=== PATIENT | male | born 1975 | race Caucasian/White ===

== ENCOUNTER 2017-08-07 17:26 | Emergency (ER) | payer OTHER, SELFPAY | END 2017-08-07 18:35 | disposition home or self-care (01) | PROVIDERS: Emergency Provider Nurse Practitioner; Family Provider Physician Assistant; Visit Provider Nurse Practitioner | DX: J32.9 Chronic sinusitis, unspecified (principal); J45.909 Unspecified asthma, uncomplicated; I10 Essential (primary) hypertension; E11.9 Type 2 diabetes mellitus without complications; Z79.4 Long term (current) use of insulin; Z79.899 Other long term (current) drug therapy | CPT/HCPCS: 87804; 99201 ==

== ENCOUNTER → 2017-09-15 16:38 | Outpatient (REF) | payer OTHER, SELFPAY ==
[2017-09-15 19:35] LABS: Hemoglobin A1C 10.1 % (0.0-7.0)
== END ==
LOC: LAB 16:38
PROVIDERS: Visit Provider Nurse Practitioner Family
DX: E11.9 Type 2 diabetes mellitus without complications (principal); E11.40 Type 2 diabetes mellitus with diabetic neuropathy, unspecified; Z79.4 Long term (current) use of insulin
CPT/HCPCS: 83036

== ENCOUNTER 2017-11-14 22:27 | Emergency (ER) | payer OTHER, SELFPAY ==
[2017-11-14 22:29] VITALS: BP 185/122; PULSE 82; RESP 18; TEMP 36.9; O2SAT 90; BMI 32.0
--- NOTE | 2017-11-14 22:44 | XR_ITS ---
XR chest 2V HISTORY: ITS.REASON: cough ORDERING PHYSICIAN: Abhishek Peña MD PATIENT AGE: 41 years COMPARISON: None available FINDINGS: The cardiomediastinal silhouette and pulmonary vascularity are within normal limits. The lungs are clear without infiltrates, suspicious nodules, or pleural effusions. No acute bony abnormalities. IMPRESSION: Negative chest, no acute finding
[2017-11-14 23:25] LABS: POC Glucose,Bedside 281 mg/dL (70-110)
[2017-11-14 23:30] LABS: Basophils # 0.1 K/mm3 (0-0.2); Basophils % 0.8 % (0.1-2.0); Eosinophils # 0.3 K/mm3 (0.0-0.4); Eosinophils % 2.5 % (0.1-12.0); Hematocrit 45.4 % (42.0-52.0); Hemoglobin 15.5 g/dL (14.1-18.0); Lymphocytes # 1.3 K/mm3 (0.7-4.5); Lymphocytes % 11.4 K/mm3 (10-50); Mean Corpuscular Hemoglobin 29.1 pg (27.0-31.2); Mean Corpuscular Volume 85.5 fl (80-94); Mean Platelet Volume 8.1 fl (7.4-10.4); Monocytes # 0.6 K/mm3 (0.1-1.0); Neutrophils # 9.2 K/mm3 (1.8-7.8); Neutrophils % 80.2 % (37.0-80.0); Platelet Count 191 K/mm3 (142-424); Red Blood Count 5.31 M/mm3 (4.60-6.20); Red Cell Distribution Width 13.6 % (11.5-17.5); White Blood Count 11.5 K/mm3 (4.8-10.8)
--- NOTE | 2017-11-14 23:45 | PC.NURSE ---
Family member came out stating pt was not breathing well, requesting oxygen. RN and medic checked on PT.
[2017-11-14 23:48] LABS: Alanine Aminotransferase 20 U/L (12-78); Albumin Level 3.9 gm/dL (3.4-5.0); Alkaline Phosphatase 104 U/L (46-116); Anion Gap 14.8 mEq/L (5-15); Aspartate Amino Transferase 14 U/L (15-37); Bilirubin,Total 0.6 mg/dL (0.2-1.0); Blood Urea Nitrogen 22 mg/dL (7-18); Calcium 8.8 mg/dL (8.5-10.1); Carbon Dioxide 23 mmol/L (21.0-32.0); Chloride 99 mmol/L (98-107); Creatinine Clearance Estimated 70 mL/min (0-300); Creatinine,Serum 2.23 mg/dL (0.70-1.30); Estimated Glomerular Filt Rate 33 ml/min (>60); GFR (African American) 40 ML/MIN (>60); Glucose 262 mg/dL (74-106); Potassium 3.8 mmoL/L (3.5-5.1); Sodium 133 mmol/L (136-145); Total Protein,Serum 7.9 gm/dL (6.4-8.2)
[2017-11-14 23:49] LABS: Lactic Acid 0.7 mmol/L (0.4-2.0)
[2017-11-14 23:50] VITALS: BP 159/107; PULSE 66; RESP 24; TEMP 37.1; O2SAT 95
[2017-11-15 02:54] VITALS: BP 172/101; PULSE 88; RESP 16; TEMP 37; O2SAT 96
--- NOTE | 2017-11-15 03:15 | [facility].EDNVD ---
ED Disposition Clinical Impression: Renal insufficiency Nausea and vomiting Qualifiers: Vomiting type: unspecified Vomiting Intractability: unspecified Qualified Code(s): R11.2 - Nausea with vomiting, unspecified Diabetes Qualifiers: Diabetes mellitus type: type 1 Diabetes mellitus complication status: with unspecified complications Qualified Code(s): E10.8 - Type 1 diabetes mellitus with unspecified complications Hypertension Qualifiers: Hypertension type: unspecified Qualified Code(s): I10 - Essential (primary) hypertension Disposition: Home, Self-Care Condition on Discharge: Good Instructions: DI for Nausea -- Adult Additional Instructions: call pcp friday and recheck if needed Referrals: Abhishek Peña MD [Primary Care Provider] - - Critical Care Critical Care Time: No Attestation: On 11/14/17, the high probability of a clinically significant, sudden or life threatening deterioration of the following system(s) required my full and direct attention, intervention and personal management. The time I documented below is in addition to time spent performing reported procedures but includes the following listed in this critical care notation. Medical Decision Making - Medical Records Medical records reviewed: Yes: I reviewed the patient's medical records. - [place] Inquiry Pt receiving controlled substance: No Vital Signs: 11/14/17 22:29 11/14/17 23:50 11/15/17 02:54 Temperature 98.5 F 98.7 F 98.6 F Temperature Source Oral Oral Oral Pulse Rate [Brachial] 82 66 88 Respiratory Rate 18 24 16 Blood Pressure [Right Arm] 185/122 159/107 172/101 Blood Pressure Mean [Right Arm] 143 124 124 Blood Pressure Source [Right Arm] Automatic Cuff Manual Cuff/ Doppler Automatic Cuff Blood Pressure Position [Right Arm] Sitting Sitting Sitting 02 Sat by Pulse Oximetry 90 L 95 96 Oxygen Delivery Method Room Air Room Air - Lab Data Lab results reviewed: Yes: I reviewed the patient's lab results. Lab Results 11/14/17 22:45: POC Glucose 281 11/14/17 23:00: Influenza Type A Ag Negative, Influenza Type B Ag Negative 11/14/17 23:20: WBC 11.5 H, RBC 5.31, Hgb 15.5, Hct 45.4, MCV 85.5, MCH 29.1, MCHC 34.0, RDW 13.6, Plt Count 191, MPV 8.1, Neut % (Auto) 80.2 H, Lymph % (Auto) 11.4, [place] % (Auto) 5.0, Eos % (Auto) 2.5, Baso % (Auto) 0.8, Neut # (Auto) 9.2 H, Lymph # (Auto) 1.3, [place] # (Auto) 0.6, Eos # (Auto) 0.3, Baso # (Auto) 0.1 11/14/17 23:20: Sodium 133 L, Potassium 3.8, Chloride 99, Carbon Dioxide 23, Anion Gap 14.8, BUN 22 H, Creatinine 2.23 H, Estimated Creat Clear 70, Estimated GFR 33 L, Est GFR ( Amer) 40 L, Glucose 262 H, Calcium 8.8, Total Bilirubin 0.6, AST 14 L, ALT 20, Alkaline Phosphatase 104, Total Protein 7.9, Albumin 3.9, Globulin 4.0 H, Albumin/Globulin Ratio 1.0 L 11/14/17 23:20: Lactic Acid 0.7 Result diagrams: 11/14/17 23:20 11/14/17 23:20 Orders (Tests/Meds): ED MEDICATIONS Discontinued Medications Generic Name Dose Route Start Last Admin Trade Name Freq PRN Reason Stop Dose Admin Albuterol/Ipratropium 3 ml 11/14/17 23:47 Duoneb 3ml Neb IH 11/14/17 23:48 ONCE ONE Sodium Chloride 500 mls @ 999 mls/hr 11/14/17 23:00 11/14/17 23:25 Sod Chlor 0.9% 1000ml Bag IV 11/14/17 23:30 999 mls/hr .Q31M [facility] Administration ORDERS Category Date Time Status Blood Culture Stat Micro 11/15/17 02:54 Ordered ABG [Arterial Blood Gas] Stat RT 11/15/17 02:54 Ordered - Radiology Data #1 Image(s): Chest Image Reviewed: Yes I reviewed the patient's radiology image Preliminary Findings: Normal/NAD Nausea/Vomiting/Diarrhea HPI - General Chief complaint: Nausea/Vomiting/Diarrhea Stated complaint: VOMITING Time Seen by Provider: 11/15/17 03:15 Mode of Arrival: Ambulatory Source of Information: Patient, Significant Other, Medical Record Limitations: No Limitations Description of Symptoms (Recalled from ER Triage Doc. by RN): c/o cough, v
--- NOTE | 2017-11-15 03:19 | ED_ITS ---
ED Disposition Clinical Impression: Renal insufficiency Nausea and vomiting Qualifiers: Vomiting type: unspecified Vomiting Intractability: unspecified Qualified Code( s): R11.2 - Nausea with vomiting, unspecified Diabetes Qualifiers: Diabetes mellitus type: type 1 Diabetes mellitus complication status: with unspecified complications Qualified Code(s): E10.8 - Type 1 diabetes mellitus with unspecified complications Hypertension Qualifiers: Hypertension type: unspecified Qualified Code(s): I10 - Essential (primary) hypertension Disposition: Home, Self-Care Condition on Discharge: Good Instructions: DI for Nausea -- Adult Additional Instructions: call pcp friday and recheck if needed Referrals: Abhishek Peña MD [Primary Care Provider] - - Critical Care Critical Care Time: No Attestation: On 11/14/17, the high probability of a clinically significant, sudden or life threatening deterioration of the following system(s) required my full and direct attention, intervention and personal management. The time I documented below is in addition to time spent performing reported procedures but includes the following listed in this critical care notation. Medical Decision Making - Medical Records Medical records reviewed: Yes: I reviewed the patient's medical records. - Ovidio Inquiry Pt receiving controlled substance: No Vital Signs: 11/14/17 22:29 11/14/17 23:50 11/15/17 02:54 Temperature 98.5 F 98.7 F 98.6 F Temperature Source Oral Oral Oral Pulse Rate [Brachial] 82 66 88 Respiratory Rate 18 24 16 Blood Pressure [Right Arm] 185/122 159/107 172/101 Blood Pressure Mean [Right Arm] 143 124 124 Blood Pressure Source [Right Arm] Automatic Cuff Manual Cuff/ Doppler Automatic Cuff Blood Pressure Position [Right Arm] Sitting Sitting Sitting 02 Sat by Pulse Oximetry 90 L 95 96 Oxygen Delivery Method Room Air Room Air - Lab Data Lab results reviewed: Yes: I reviewed the patient's lab results. Lab Results 11/14/17 22:45: POC Glucose 281 11/14/17 23:00: Influenza Type A Ag Negative, Influenza Type B Ag Negative 11/14/17 23:20: WBC 11.5 H, RBC 5.31, Hgb 15.5, Hct 45.4, MCV 85.5, MCH 29.1, MCHC 34.0, RDW 13.6, Plt Count 191, MPV 8.1, Neut % (Auto) 80.2 H, Lymph % (Auto ) 11.4, [place] % (Auto) 5.0, Eos % (Auto) 2.5, Baso % (Auto) 0.8, Neut # (Auto) 9.2 H, Lymph # (Auto) 1.3, [place] # (Auto) 0.6, Eos # (Auto) 0.3, Baso # (Auto) 0.1 11/14/17 23:20: Sodium 133 L, Potassium 3.8, Chloride 99, Carbon Dioxide 23, Anion Gap 14.8, BUN 22 H, Creatinine 2.23 H, Estimated Creat Clear 70, Estimated GFR 33 L, Est GFR ( Amer) 40 L, Glucose 262 H, Calcium 8.8, Total Bilirubin 0.6, AST 14 L, ALT 20, Alkaline Phosphatase 104, Total Protein 7.9, Albumin 3.9, Globulin 4.0 H, Albumin/Globulin Ratio 1.0 L 11/14/17 23:20: Lactic Acid 0.7 Result diagrams: 11/14/17 23:20 11/14/17 23:20 Orders (Tests/Meds): ED MEDICATIONS Discontinued Medications Generic Name Dose Route Start Last Admin Trade Name Freq PRN Reason Stop Dose Admin Albuterol/Ipratropium 3 ml 11/14/17 23:47 Duoneb 3ml Neb IH 11/14/17 23:48 ONCE ONE Sodium Chloride 500 mls @ 999 mls/hr 11/14/17 23:00 11/14/17 23:25 Sod Chlor 0.9% 1000ml Bag IV 11/14/17 23:30 999 mls/hr .Q31M [facility] Administration ORDERS Category Da
[2017-11-15 03:38] VITALS: BP 169/78; PULSE 90; RESP 16; TEMP 36.9; O2SAT 96
== END 2017-11-15 03:39 | disposition home or self-care (01) ==
PROVIDERS: Emergency Provider Emergency Medicine; Family Provider Physician Assistant; PCP Emergency Medicine
DX: N28.9 Disorder of kidney and ureter, unspecified (principal); I10 Essential (primary) hypertension; Z79.4 Long term (current) use of insulin; F41.8 Other specified anxiety disorders
CPT/HCPCS: 71046; 80053; 82962; 83605; 85025; 87040; 87275; 87276; 96365; 99283

== ENCOUNTER → 2018-02-09 10:21 | Outpatient (REF) | payer BC, OTHER, SELFPAY ==
[2018-02-09 14:40] LABS: Amphetamine/Metha Screen,Urine Negative ng/mL (<1000); Barbiturates Screen,Urine Negative ng/mL (<200); Benzodiazepines Screen,Urine Negative ng/mL (200); Cannabinoid Screen,Urine Positive ng/mL (<50); Cocaine Screen,Urine Negative ng/g (<300); Methadone Screen,Urine Negative ng/mL (<300); Opiate Screen,Urine Negative ng/mL (<300); Phencyclidine Screen,Urine Negative ng/mL (<25)
== END ==
LOC: LAB 10:21
PROVIDERS: Visit Provider Nurse Practitioner Family
DX: Z79.899 Other long term (current) drug therapy (principal)
CPT/HCPCS: 80305

== ENCOUNTER → 2018-06-06 10:39 | Outpatient (CLI) | payer BC, SELFPAY ==
--- NOTE | 2018-06-06 10:44 | XR_ITS ---
XR shoulder RT min 2V Ordering Physician: RIMA Awad Patient Age: 42 years: Male HISTORY: ITS.REASON: Right shoulder pain right shoulder pain. 2 months decreased range of motion TECHNIQUE: 3 views right shoulder COMPARISON :Chest film October 2017 FINDINGS Glenohumeral joint is intact. Humeral head and neck intact. Sacrum unremarkable Mild AC joint hypertrophy and arthropathy. Hypertrophy most evident within the superior aspect of the distal clavicle with slight fragmentation here. No change since October 2017 CXR No widening at the AC joint. . [place] right lung clear. Upper most ribs unremarkable IMPRESSION: Mild AC joint arthropathy, & hypertrophy Glenohumeral joint intact. No fracture nor dislocation
== END ==
PROVIDERS: PCP Emergency Medicine; Referring Provider Physician Assistant; Visit Provider Physician Assistant
DX: M25.511 Pain in right shoulder (principal)
CPT/HCPCS: 73030

== ENCOUNTER → 2018-06-15 11:03 | Outpatient (REF) | payer BC, OTHER, SELFPAY ==
[2018-06-15 14:45] LABS: Amphetamine/Metha Screen,Urine Negative ng/mL (<1000); Barbiturates Screen,Urine Negative ng/mL (<200); Benzodiazepines Screen,Urine Negative ng/mL (<200); Cannabinoid Screen,Urine Positive ng/mL (<50); Cocaine Screen,Urine Negative ng/mL (<300); Methadone Screen,Urine Negative ng/mL (<300); Opiate Screen,Urine Negative ng/mL (<300); Phencyclidine Screen,Urine Negative ng/mL (<25)
== END ==
LOC: LAB 11:03
PROVIDERS: Visit Provider Nurse Practitioner Family
DX: Z79.899 Other long term (current) drug therapy (principal)
CPT/HCPCS: 80305

== ENCOUNTER → 2018-10-01 12:46 | Outpatient (CLI) | payer BC, OTHER, SELFPAY ==
[2018-10-01 12:51] LABS: Microscopic, Urine URINE MICROSCOPIC (MICROSCOPIC)
[2018-10-01 13:03] LABS: Basophils # 0.1 K/mm3 (0-0.2); Basophils % 1.1 % (0.1-2.0); Eosinophils # 0.3 K/mm3 (0.0-0.4); Hematocrit 46.3 % (42.0-52.0); Hemoglobin 15.5 g/dL (14.1-18.0); Lymphocytes # 1.3 K/mm3 (0.7-4.5); Lymphocytes % 15.1 % (10-50); Mean Corpuscular HGB Conc 33.5 g/dL (31.8-35.4); Mean Corpuscular Hemoglobin 29.6 pg (27.0-31.2); Mean Corpuscular Volume 88.5 fl (80-94); Mean Platelet Volume 7.3 fl (7.4-10.4); Monocytes # 0.4 K/mm3 (0.1-1.0); Monocytes % 4.9 % (1.7-9.3); Neutrophils # 6.3 K/mm3 (1.8-7.8); Neutrophils % 75.9 % (37.0-80.0); Platelet Count 185 K/mm3 (142-424); Red Blood Count 5.23 M/mm3 (4.60-6.20); Red Cell Distribution Width 13.6 % (11.5-17.5); White Blood Count 8.3 K/mm3 (4.8-10.8)
[2018-10-01 13:32] LABS: Appearance,Urine CLEAR (Clear); Bilirubin,Urine Negative (Negative); Blood, Urine TRACE-L (Negative); Color,Urine YELLOW (Yellow); Glucose,Urine (UA) 3+ (Negative); Ketones,Urine Negative (Negative); Leukocyte Esterase,Urine Negative (Negative); Nitrate,Urine Negative (Negative); Protein,Urine 1+ (Negative); Specific Gravity, Urine <= 1.005 (1.005-1.030); Urobilinogen,Urine 0.2 EU/dl (0.2)
[2018-10-01 13:37] LABS: Creatinine,Urine Random 66 mg/dL (20-320); Total Protein,Urine Random 64.3 mg/dL (0.0-11.9)
[2018-10-01 14:19] LABS: Bacteria,Urine Trace /lpf; Squamous Epithelial Cell,Urine Occasional #/hpf (0-5)
[2018-10-01 14:41] LABS: Hemoglobin A1C 10.4 % (0.0-7.0)
[2018-10-01 14:47] LABS: Albumin Level 3.9 gm/dL (3.4-5.0); Anion Gap 14.4 mEq/L (5-15); Blood Urea Nitrogen 31 mg/dL (7-18); Calcium 9.7 mg/dL (8.5-10.1); Carbon Dioxide 29 mmol/L (21.0-32.0); Chloride 95 mmol/L (98-107); Creatinine,Serum 3.02 mg/dL (0.70-1.30); Estimated Glomerular Filt Rate 23 ml/min (>60); GFR (African American) 28 ML/MIN (>60); Phosphorous 3.4 mg/dL (2.4-4.9); Potassium 4.4 mmoL/L (3.5-5.1); Sodium 134 mmol/L (136-145)
[2018-10-01 15:03] LABS: Glucose 400 mg/dL (74-106)
== END ==
PROVIDERS: Internal Medicine; Visit Provider Nurse Practitioner Family
DX: E11.9 Type 2 diabetes mellitus without complications (principal); N18.3 Chronic kidney disease, stage 3 (moderate)
CPT/HCPCS: 36415; 80069; 81001; 82570; 83036; 84155; 85025

== ENCOUNTER → 2018-11-10 17:57 | Outpatient (CLI) | payer BC, OTHER, SELFPAY ==
[2018-11-13 08:49] LABS: Microalbumin, Urine 344.7 ug/mL (Not Estab.)
== END ==
PROVIDERS: Visit Provider Nurse Practitioner Family
DX: E11.9 Type 2 diabetes mellitus without complications (principal); Z79.4 Long term (current) use of insulin
CPT/HCPCS: 82043

== ENCOUNTER → 2019-01-18 10:39 | Outpatient (CLI) | payer BC, OTHER, SELFPAY ==
[2019-01-18 10:55] LABS: Microscopic, Urine URINE MICROSCOPIC (MICROSCOPIC)
[2019-01-18 11:53] LABS: Appearance,Urine CLEAR (Clear); Bilirubin,Urine Negative (Negative); Blood, Urine TRACE-L (Negative); Color,Urine YELLOW (Yellow); Glucose,Urine (UA) Negative (Negative); Ketones,Urine Negative (Negative); Leukocyte Esterase,Urine Negative (Negative); Nitrate,Urine Negative (Negative); Protein,Urine Negative (Negative); Urobilinogen,Urine 0.2 EU/dl (0.2)
[2019-01-18 12:00] LABS: Basophils # 0.1 K/mm3 (0-0.2); Basophils % 1.1 % (0.1-2.0); Eosinophils # 0.3 K/mm3 (0.0-0.4); Eosinophils % 3.2 % (0.1-12.0); Hematocrit 45.7 % (42.0-52.0); Hemoglobin 16.4 g/dL (14.1-18.0); Lymphocytes # 2.1 K/mm3 (0.7-4.5); Lymphocytes % 21.7 % (10-50); Mean Corpuscular HGB Conc 35.8 g/dL (31.8-35.4); Mean Corpuscular Volume 83.9 fl (80-94); Monocytes # 0.6 K/mm3 (0.1-1.0); Monocytes % 6.3 % (1.7-9.3); Neutrophils # 6.5 K/mm3 (1.8-7.8); Neutrophils % 67.7 % (37.0-80.0); Platelet Count 258 K/mm3 (142-424); Red Blood Count 5.44 M/mm3 (4.60-6.20); Red Cell Distribution Width 13.4 % (11.5-17.5); White Blood Count 9.5 K/mm3 (4.8-10.8)
[2019-01-18 12:03] LABS: Bacteria,Urine Trace /lpf; RBC,Urine Occasional #/hpf (0-3); Squamous Epithelial Cell,Urine Occasional #/hpf (0-5)
[2019-01-18 12:23] LABS: Albumin Level 4.4 gm/dL (3.4-5.0); Anion Gap 14.4 mEq/L (5-15); Blood Urea Nitrogen 33 mg/dL (7-18); Calcium 9.3 mg/dL (8.5-10.1); Carbon Dioxide 28 mmol/L (21.0-32.0); Chloride 100 mmol/L (98-107); Creatinine,Serum 3.27 mg/dL (0.70-1.30); Estimated Glomerular Filt Rate 21 ml/min (>60); GFR (African American) 25 ML/MIN (>60); Glucose 105 mg/dL (74-106); Phosphorous 3.8 mg/dL (2.4-4.9); Potassium 4.4 mmoL/L (3.5-5.1); Sodium 138 mmol/L (136-145)
== END ==
PROVIDERS: Visit Provider Internal Medicine
DX: I10 Essential (primary) hypertension (principal)
CPT/HCPCS: 36415; 80069; 81001; 85025

== ENCOUNTER → 2019-05-04 17:43 | Outpatient (CLI) | payer BC, OTHER, SELFPAY ==
[2019-05-04 18:35] LABS: Basophils # 0.1 K/mm3 (0-0.2); Eosinophils # 0.4 K/mm3 (0.0-0.4); Eosinophils % 4.5 % (0.1-12.0); Hematocrit 46.1 % (42.0-52.0); Hemoglobin 16.2 g/dL (14.1-18.0); Lymphocytes # 1.8 K/mm3 (0.7-4.5); Lymphocytes % 18.9 % (10-50); Mean Corpuscular HGB Conc 35.1 g/dL (31.8-35.4); Mean Corpuscular Hemoglobin 30.3 pg (27.0-31.2); Mean Corpuscular Volume 86.5 fl (80-94); Mean Platelet Volume 8.2 fl (7.4-10.4); Monocytes # 0.5 K/mm3 (0.1-1.0); Monocytes % 5.7 % (1.7-9.3); Neutrophils # 6.5 K/mm3 (1.8-7.8); Neutrophils % 69.9 % (37.0-80.0); Platelet Count 223 K/mm3 (142-424); Red Blood Count 5.33 M/mm3 (4.60-6.20); White Blood Count 9.3 K/mm3 (4.8-10.8)
[2019-05-04 18:54] LABS: Alanine Aminotransferase 21 U/L (12-78); Albumin Level 4.7 gm/dL (3.4-5.0); Albumin/Globulin Ratio 1.3 (1.1-1.8); Alkaline Phosphatase 82 U/L (46-116); Aspartate Amino Transferase 18 U/L (15-37); Bilirubin,Total 0.5 mg/dL (0.2-1.0); Blood Urea Nitrogen 29 mg/dL (7-18); Calcium 9.4 mg/dL (8.5-10.1); Carbon Dioxide 22 mmol/L (21.0-32.0); Chloride 100 mmol/L (98-107); Chol/HDL Ratio 7.3 (1-3.5); Cholesterol 213 mg/dL (140-200); Creatinine,Serum 3.41 mg/dL (0.70-1.30); Estimated Glomerular Filt Rate 20 ml/min (>60); GFR (African American) 24 ML/MIN (>60); Globulin 3.7 gm/dl (1.3-3.2); Glucose 186 mg/dL (74-106); HDL Cholesterol 29 mg/dL (27-67); Sodium 137 mmol/L (136-145); T4 (Thyroxine) 9.5 ug/dl (4.7-13.3); Thyroid Stimulating Hormone 0.97 uIU/ml (0.358-3.740); Total Protein,Serum 8.4 gm/dL (6.4-8.2)
[2019-05-04 19:00] LABS: Triglycerides 613 mg/dL (30-200)
[2019-05-04 19:35] LABS: Hemoglobin A1C 6.4 % (0.0-7.0)
[2019-05-06 07:20] LABS: Vitamin D 25 Hydroxy 19.1 ng/mL (30.0-100.0)
[2019-05-06 11:11] LABS: Creatinine, Urine 34.6 mg/dL (Not Estab.); Microalbumin, Urine 188.5 ug/mL (Not Estab.)
== END ==
PROVIDERS: Visit Provider Nurse Practitioner Family
DX: E11.9 Type 2 diabetes mellitus without complications (principal); E55.9 Vitamin D deficiency, unspecified; Z79.4 Long term (current) use of insulin; Z79.899 Other long term (current) drug therapy
CPT/HCPCS: 80053; 80061; 82043; 82570; 82652; 83036; 84436; 84443; 85025